=== PATIENT | female | born 1970 | race Two or more races ===

== ENCOUNTER 2021-11-19 13:44 | Outpatient (CLI) | payer BC | END 2021-11-19 13:45 | disposition home or self-care (01) | LOC: LAB 13:44 | PROVIDERS: ATTEND Internal Medicine | DX: Z01.812 Encounter for preprocedural laboratory examination (principal); Z01.818 Encounter for other preprocedural examination; Z20.822 Contact with and (suspected) exposure to COVID-19; Z01.810 Encounter for preprocedural cardiovascular examination ==